=== PATIENT | male | born 1955 | race Caucasian/White ===

== ENCOUNTER 2017-01-01 16:30 | Observation (INO) | payer OTHER ==
[~2017-01-01] VITALS: Ht 182.9 cm; Wt 79.8 kg
--- NOTE | ~2017-01-01 | CATH ---
Cardiac Diagnostic + PCI Report Demographics Patient Name BISHOP LUQUE Gender Male Date of 1955 Age 61 year(s) Patient Number [id number] Date of Study 01/02/2017 Visit Number [id number] Room Number G6337 [place] [id number] Ht 182.88 cm Wt 78.93 kg Referring Michael Primary Physician Physician Yu JEREZ Performing Michael Secondary Physician Physician Yu JEREZ Diagnostic Michael Assisting Physician Physician Yu JEREZ Interventional Michael Physician Change Management Facilitator Physician Yu JEREZ Findings and Conclusions Diagnostic Findings and Conclusion Type 2 medium diffuse disease Diagnostic Recommendations PCI CX Interventional Findings and Conclusion Increase LVEDP PCI to LCFX lesion Proximal Interventional Recommendations DAPT 1 year Secondary precautious measures Procedure Description The patient was brought to the diagnostic cardiac catheterization-EP laboratory in the fasting, non-sedated state. Informed consent was obtained in the written and verbal form after the risks and benefits were explained. The patient had no further questions and agreed to proceed. The planned puncture-incision site(s) were shaved and prepped with ChloraPrep and draped in the usual sterile manner. Conscious sedation, supplemental oxygen, and pain control medications were delivered by a registered nurse under physician guidance. Surface ECG rhythm, blood pressure measurement, and pulse oximetry were monitored throughout the procedure. Arterial access. The access site was infiltrated with lidocaine. The vessel was entered with the Seldinger technique. A sheath was advanced into the vessel and used for catheter placement. Selective left coronary angiography. A catheter was advanced into the left coronary vessel ostium under Fluoroscopic guidance. Contrast was injected by hand. Images were obtained in multiple projections. Selective right coronary angiography. A catheter was advanced into the right coronary vessel ostium under fluoroscopic guidance. Contrast was injected by hand. Images were obtained in multiple projections. Left heart catheterization. A catheter was advanced across the aortic valve to the left ventricle under fluoroscopic guidance. Resting hemodynamics were obtained. Angioplasty and Stent Placement: A guiding catheter was used to intubate the vessel. A 0.14 wire was then used to cross the lesion. A balloon catheter was placed across the lesion and inflated. The balloon catheter was then removed. A Drug Eluting Stent was placed and inflated. Post placement angiograms were performed. Arterial artery hemostasis was achieved. The patient was transferred to a regular nursing floor via cart accompanied by a nurse. The patient left the laboratory in stable condition. Diagnostic Cath Status: Urgent Interventional Cath Status: Urgent Procedure Procedure Type Diagnostic procedure:Angiography:, Coronary Angios /[facility] PCI procedure:Drug Eluting Coronary Stent:, CFX Indications: Elevated Troponin. The procedure was explained in detail to the patient. Risks, complications and alternative treatments were reviewed. Written consent was obtained. Medications Reviewed with Patient prior to Procedure. Angiographic Findings Dominance: Right Cardiac Arteries and Lesion Findings LMCA: Lesion on LMCA: Proximal subsection.40% stenosis . LAD: stent patent Asim Fatima is a previous stent on Mid LAD Mid subsection. Lesion on Prox LAD: Proximal subsection.25% stenosis . LCx: Lesion on Prox CX: Proximal subsection.80% stenosis 16 mm length reduced to 0%. Pre procedure BELLA III flow was noted. Post Procedure BELLA III flow was present. The guidewire cross was successful.A good run off was present.The lesion was diagnosed as a low risk lesion.Lesion plaque is ruptured.Culprit lesion. Devices used - Luge Wire .014 x 182. Number of passes: 1. - Emerge Balloon 3.0 x 12. 1 inflation(s) to a max pressure of: 12 kristina. - Promus Premier 3.5 x 16 Stent. 1 inflation(s) to a max pressure of: 16 kristina. RCA: dominant Lesion on Mid RCA: Mid subsection.40% stenosis . Coronary Tree Procedure Data Procedure Date Date: 01/02/2017Start: 01:47 PMEnd: 02:54 PM Entry Locations - Retrograde Percutaneous access was performed through the Right Femoral artery (Primary location). A 7 Fr sheath was inserted. Hemostasis was successfully obtained using Perclose ProGlide (Diaz). Closure Comments: Perclose deployed by mariana . Procedure Medications Order and Administration + + + + + !Time !Medication !Dosage !Route ! + + + + + !01/02/2017 01:41 PM !Fentanyl !50 mcg !I.V. ! + + + + + !01/02/2017 01:47 PM !Versed !1 mg !I.V. ! + + + + + !01/02/2017 01:48 PM !Fentanyl !25 mcg !I.V. ! + + + + + !01/02/2017 01:49 PM !Versed !1 mg !I.V. ! + + + + + !01/02/2017 01:51 PM !Oxygen !2 l/min !NC ! + + + + + !01/02/2017 02:09 PM !Heparin (ACC_3) !6000 units !I.V. ! + + + + + 01/02/2017 02:21 PM !Baby Aspirin (ACC_4) !243 mg !P.O. ! + + + + + 01/02/2017 02:32 PM !Nitroglycerin !15 mcg/min !I.V. drip ! + + + + 01/02/2017 02:34 PM !Fentanyl !25 mcg !I.V. ! + + + + 01/02/2017 02:43 PM !Plavix (ACC_8) !300 mg !P.O. ! + + + + + !01/02/2017 02:36 PM !Heparin (ACC_3) ! !I.V. drip ! + + + + + !01/02/2017 02:37 PM !Integrilin (ACC_7) !14.6 mg !I.V. bolus ! + + + + + !01/02/2017 02:42 PM !Integrilin (ACC_7) !2 mcg/kg/min !I.V. drip ! + + + + + Devices Used - A6 Fr. BS JR 4 Diag. Catheterwas used for:Right coronary angiography. - A6 Fr. BS JL 4 Diag. Catheterwas used for:Left coronary angiography. - A6 Fr. XB 3.5 Guide Catheterwas used for:LAD Intervention. Contrast Material - Isovue [id number] ml Fluoroscopy Time: Diagnostic: 8:42 minutes. Total: 8:42 minutes. Fluoroscopy Dose: Diagnostic: 1913 mGy. Total: 1913 mGy. Estimated Blood Loss: 30 ml. Additional [facility] PCI Information PCI Indication:Other. Medical History Performed Procedures and Imaging Results - No [facility] stress or imaging studies were performed. Allergies - No known allergies. Risk Factors The patient risk factors include:prior PCI on 10/13/2015;peripheral arterial disease, hypertension, chronic lung disease, dyslipidemia, Current/Recent(w/in 1 year) tobacco use and prior IN . Admission Data Admission Date: 01/01/2017 Admission Time: 05:40 PM Admit Source: Emergency department Insurance Payors: None. Admission Medications + +------+------+---------+ + + + !Medication !Dosage!Times !Last !Last !Administered !Comments ! ! ! !Per !Delivery !Delivery ! ! ! ! ! !Day !Date !Time ! ! ! + +------+------+---------+ + + + !Aspirin (any)! ! ! ! !Yes ! ! + +------+------+---------+ + + + !Clopidogrel ! ! ! ! !Yes ! ! + +------+------+---------+ + + + !Beta Jose Armando ! ! ! ! !Yes ! ! !(any) ! ! ! ! ! ! ! + +------+------+---------+ + + + !LISA Inhibitor! ! ! ! !Yes ! ! !(any) ! ! ! ! ! ! ! + +------+------+---------+ + + + !Statin (any) ! ! ! ! !Yes ! ! + +------+------+---------+ + + + !Nitrates (iv ! ! ! ! !Yes ! ! !or buccal) ! ! ! ! ! ! ! + +------+------+---------+ + + + Clinical Evaluation Leading to Procedure - The patient's CAD presentation was assessed as: Non-STEMI. - The patient's anginal syndrome during the past two weeks was assessed as: Class IV according to the [place] Cardiovascular Society Classification System (CCS). Anti-anginal medications were prescribed during the past two weeks. The medication is: Beta Blockers. Hemodynamics Condition: Rest O2 Consumption: Estimated: 229.19Heart Rate: 61 bpm Pressures (mmHg) +-----+ + !Site !Pressure ! +-----+ + !LV !163/0 ,20 ! +-----+ + !LV !153/1 ,19 ! +-----+ + !AO !166/79 (114) ! +-----+ + Shunts Oxygen Values O2 Capacity 212.16 O2 Consumption 229.19 Discharge Data Discharge Date: 01/03/2017 Hospital Status: Inpatient Signatures dtt: Yu Rodriguez dtchristina: 01/02/17 1347 Physician Self Edit
--- NOTE | ~2017-01-01 | ECHO ---
Transthoracic Echocardiography Report (TTE) Demographics Patient Name ENE TIDWELL Date of Study 01/02/2017 Patient Number [id number] Visit Number [id number] Date of 1955 Room Number G6337 Gender Male Number Age 61 year(s) Referring Michael Nicholas Fireworks Assembly Supervisor Ivett aPvon, Physician RT,RVT,RDCS Physician Interpreting Michael Nicholas Director Corporate Compliance Physician Supervising Ordering Michael Nicholas MD/MLP Physician Nurse Stress Food Service Associate Conclusions Contractility Score Summary Normal Left Ventricular contractility was noted. Summary The estimated left ventricular ejection fraction is 60-65% with normal internal dimension and WM.Mild concentric left ventricular hypertrophy. Mild TR. There is mild pulmonary hypertension. The pulmonary pressure (RVSP) is 34 mmHg. Procedure Type of Study TTE procedure:2D Echocardiogram, M-Mode, Doppler , Color Doppler. Procedure Date Date: 01/02/2017 Start: 10:05 AM Study Location: Inpatient Portable Technical Quality: Adequate visualization Indications:Chest pain. Appropriate Use Criteria: 9 Patient Status: Routine HR: 73 bpm BP: 176/88 mmHg Allergies - No known allergies. M-Mode/2D Measurements LV Diastolic Dimension: 4.63 cm LV Systolic Dimension: 3.09 cm LV Septum Diastolic: 1.35 cm LV PW Diastolic: 1.24 cm AO Root Dimension: 3.5 cm Cardiac Output: 4.95 l/min AV Cusp Separation: 1.7 cm RV Diastolic Dimension: 3 cm LA volume: 46 ml MV EPSS: 70 cm LVOT: 2 cm LVOT VTI: 21.6 cm LV Stroke volume: 67.82 ml Doppler Measurements AV Peak Velocity: 1.16 m/s MV Peak E-Wave: 0.83 m/s AV Peak Gradient: 5.38 mmHg MV Peak A-Wave: 0.79 m/s AV Mean Gradient: 3 mmHg MV E/A Ratio: 1.06 LVOT Peak Velocity: 1.01 m/s MV P1/2t: 58 msec TR Gradient:20.98 mmHg PV Peak Velocity: 1.1 m/s Estimated RAP:10 mmHg PV Peak Gradient: 4.84 mmHg Estimated RVSP: 31 mmHg Estimated PASP: 30.98 mmHg E' Septal Velocity: 0.06 m/s A' Septal Velocity: 0.07 m/s MV E/E' Ratio: 13.6 Findings Left Ventricle Mild concentric left ventricular hypertrophy with normal internal dimension,EF and WM. Right Ventricle Normal right ventricle structure and function. Left Atrium Normal left atrial size. Right Atrium Normal right atrial size. Mitral Valve Normal mitral valve structure and function. Aortic Valve Normal aortic valve structure and function. Tricuspid Valve There is mild pulmonary hypertension. The pulmonary pressure (RVSP) is 34 mmHg. Pulmonic Valve Normal pulmonic valve structure and function. Pericardial Effusion No evidence of pericardial effusion. Miscellaneous Visualized portions of the aortic root and ascending aorta appear normal in size. Pleural Effusion No evidence of pleural effusion. Contractility Score LV regional wall motion:(0-Non visualized 1-Normal 2-Hypokinesis 3-Akinesis 4-Dyskinesis 5-Aneurysm) Signature dtt: Yu Rodriguez dtd: 01/02/17 1005 Physician Self Edit
--- NOTE | ~2017-01-01 | HP ---
PATIENT'S NAME: ENE TIDWELL [facility] AGE: 61 Y [address] ROOM: G6337 [place], [place] [address] LOCATION: GPCU ADMIT DATE: 01/01/2017 History & Physical DISCHARGE DATE: FAMILY PHYSICIAN: PHYSICIAN, UNKNOWN ATTENDING PHYSICIAN: Yu Rodriguez DATE OF SERVICE: 01/01/2017 HISTORY OF PRESENT ILLNESS: Mr. Tidwell is a 61-year-old male patient who has been having exertional chest pain off and on for the past month. Today morning, this started around 10 o'clock when he was working and did not quite go away, like they usually do. It got a lot better though, but he decided to go to the emergency room in [place] where an initial EKG showed atrial paced rhythm and his troponin was borderline elevated. His pain was still a little more than 3 or so on a scale of 1-10. Earlier in the day, it was 9 on a scale of 1-10. It apparently seemed to radiate to the left inframammary area and both shoulders, more so on the left side than on the right, associated with sweating, dizziness, and heart feeling. He was started on IV nitroglycerin and transferred here by ambulance. His pain is now down to 1. His systolic blood pressure when he was in [place] was in the 200s and it is now down to 190s. The patient had an acute anterior TN about a year ago and was treated with a stent at that time. Unfortunately, he continues to smoke. He had about a 75- 80% lesion in the circumflex and the right coronary artery at the time of his TN. He has been in functional class 2 with no paroxysmal nocturnal dyspnea or orthopnea. He had been lightheaded and dizzy in 2008 and underwent permanent pacemaker placement. He has occasional palpitations. He has no ankle swelling. The patient has history of hypertension, elevated cholesterol, and ongoing tobaccoism. He denies diabetes or family history of premature coronary artery disease. He has a history of TN in 2016. The patient denies rheumatic fever, heart murmur, congestive heart failure, or dilated or enlarged heart. He has a permanent pacemaker placement as above and has no definitive history of atrial fibrillation. MEDICATIONS: 1. Aspirin 81 mg a day. 2. Plavix 75 mg a day. 3. Acetaminophen. 4. Metoprolol 25 mg b.i.d. PATIENT'S NAME: ENE TIDWELL [facility] AGE: 61 Y [address] ROOM: G6337 [place], [place] [address] [facility] ADMIT DATE: 01/01/2017 History & Physical DISCHARGE DATE: FAMILY PHYSICIAN: PHYSICIAN, UNKNOWN ATTENDING PHYSICIAN: Yu Rodriguez 5. Enalapril 2.5 mg a day. 6. Atorvastatin 80 mg a day. 7. Nitroglycerin as needed. ALLERGIES: NO KNOWN ALLERGIES. PAST MEDICAL HISTORY: Healthy. SOCIAL HISTORY: The patient is . He denies abusing alcohol even though he drinks 1-2 ounces of whiskey almost on a daily basis. His appetite and weight are stable. Sleep is fair. FAMILY HISTORY: No premature coronary artery disease. REVIEW OF SYSTEMS: Twelve-point review of systemsreveals that he has, 1. Difficult to get rid of cold for the past 2 months and hay fever. 2. Corrective lenses. 3. Dysphagia for solids, going on for a number of years, which is nonprogressive, in fact may have gotten better lately. PHYSICAL EXAMINATION: VITAL SIGNS: His blood pressure is 190/80, heart rate is in the 60s and it is atrial paced, respirations are 18, afebrile, and oxygen saturation is 99% on room air. HEENT: Normal. NECK: Supple with no JVD, thyromegaly, lymphadenopathy, or carotid bruit. CARDIAC: PMI is not well located. First and second heart sounds are regular. There are no added sounds or murmurs. CHEST: Clear to auscultation. ABDOMEN: Soft and nontender. Bowel sounds are normally present. EXTREMITIES: No edema. CENTRAL NERVOUS SYSTEM: Intact. ASSESSMENT: A 61-year-old male patient with a known coronary artery disease, status post myocardial infarction about a year ago, presents with a recurrence of similar pains that has been again prolonged today. His initial troponin in [place] [facility] was mildly elevated. His EKG is negative for ST elevation. He was transferred by ground ambulance. He currently reports the pain to be 1 on a scale of 1-10. PATIENT'S NAME: ENE TIDWELL [facility] AGE: 61 Y [address] ROOM: [address] [address] LOCATION: [facility] ADMIT DATE: 01/01/2017 History & Physical DISCHARGE DATE: FAMILY PHYSICIAN: PHYSICIAN, UNKNOWN ATTENDING PHYSICIAN: Yu Rodriguez RECOMMENDATIONS: We will continue with his home medications and add on nitroglycerin intravenously as well as heparin intravenously. Get his blood pressure better controlled and rule him out for TN and then based on whether he had a non- STEMI or not, we will decide regarding catheterization or stress test. MD BUSTER DONOVAN/douglas /[id number] D: [id number] T: [id number] HISTORY & PHYSICAL
[~2017-01-01 16:30] MED LIST: ASPIRIN LO-DOSE81 MG PO; BRILINTA90 MG PO; LIPITOR80 MG PO; LOPRESSOR25 MG PO; NICODERM (HABIT14 MG TRANS; NITROSTAT0.4 MG SL; TOPROL XL200 MG PO; TYLENOL325 MG PO; VASOTEC5 MG PO
[2017-01-01] MEDS ORDERED: PLAVIX75 MG PO (18:11)
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
--- NOTE | 2017-01-02 04:32 | NUR ---
Significant Event: Patient A/Ox3. VSS on RA. Hypertensive, but SBP<180. Heparin running at 1000u/hr. Patient states he does not have any chest pain, but does have the same tightness in his chest that he has had for quite awhile. Up SBA to bathroom. Good UOP. Patient has been NPO since midnight for possible stress test this AM. Follow up: Stress test? Depending on morning troponin level.
--- NOTE | 2017-01-02 14:36 | NUR ---
Introduced self and role of care managememt to patient. He lives in [place] by himself. He states that he is able to do all his own ADL's. He states that he has family and friends that assist if needed. He plans on returning home on dicharge. He denies any needs at this time. Will continue to follow.
--- NOTE | 2017-01-02 17:17 | NUR ---
Significant Event: HRT CATH THIS AFTERNOON, BACK ABOUT 1500. STENTED THE CIRC. HEPARIN OFF, NTG ON KEEP SYS BP LESS THAN 160, INTEGRILLIN X6 HOURS, OFF 2100. CBC AT 1900, CALL PLT'S LESS THAN OR EQUAL TO 150. FINISH THIS BAG OF NS THEN LOCK...UNLESS USING FOR A CARRIER. PT DID STAND AT BEDSIDE TO USE URINAL, DRESSING WAS CDI WITH NO DRAINAGE AT ALL, NOW IS SATUATED. NO CHANGES IN GROIN SITE, NO LEAKING, NO HEMATOMA. SITE IS VERY TENDER AND WAS UPON RETURN FROM MANAGER TRANSFER. Follow up: TOLD PT NOT STAND UP AGAIN WITHOUT LETTING US KNOW OR CALLING FOR HELP.
[2017-01-02 19:01] LABS: BASOPHIL # 0.1 K/uL (0.0-0.2); BASOPHIL % 0.9 %; EOSINOPHIL # 0.2 K/uL (0.0-0.5); EOSINOPHIL % 2.8 %; HEMATOCRIT 39.5 % (37.0-53.0); HEMOGLOBIN 13.4 g/dL (11.0-16.0); IMMATURE GRANULOCYTE % 0.2 %; LYMPHOCYTE # 1.5 K/uL (0.8-4.0); LYMPHOCYTE % 25.3 %; MCH 32.5 pg (27.0-34.0); MCHC 33.9 gm/dL (32.0-36.5); MCV 95.9 fl (83.0-98.0); MONOCYTE # 0.4 K/uL (0.0-1.0); MONOCYTE % 7.3 %; MPV 9.7 fl (9.4-12.4); NEUTROPHIL # (ANC) 3.7 K/uL (1.4-9.0); NEUTROPHIL % 63.5 %; NRBC % 0 /100WBC (0-0.00); PLATELET COUNT 124 K/uL (150-450); RBC 4.12 M/uL (3.50-5.50); RDW-CV 12.6 % (11.9-14.6); WBC 5.8 K/uL (4.0-11.0)
[2017-01-03 04:12] LABS: BASOPHIL % 0.5 %; EOSINOPHIL # 0.2 K/uL (0.0-0.5); EOSINOPHIL % 3.6 %; HEMATOCRIT 40.7 % (37.0-53.0); HEMOGLOBIN 13.7 g/dL (11.0-16.0); IMMATURE GRANULOCYTE % 0.4 %; LYMPHOCYTE # 0.9 K/uL (0.8-4.0); LYMPHOCYTE % 15.4 %; MCH 32.7 pg (27.0-34.0); MCHC 33.7 gm/dL (32.0-36.5); MCV 97.1 fl (83.0-98.0); MONOCYTE # 0.5 K/uL (0.0-1.0); MONOCYTE % 9.1 %; MPV 9.5 fl (9.4-12.4); NEUTROPHIL # (ANC) 3.9 K/uL (1.4-9.0); NRBC % 0 /100WBC (0-0.00); PLATELET COUNT 110 K/uL (150-450); RBC 4.19 M/uL (3.50-5.50); RDW-CV 12.8 % (11.9-14.6); WBC 5.5 K/uL (4.0-11.0)
[2017-01-03 04:32] LABS: ALBUMIN 3.3 gm/dL (3.5-5.0); ALK PHOS 84 IU/L (33-138); ALT 34 IU/L (12-78); ANION GAP 10.2 (10.0-19.0); AST 30 IU/L (10-40); BLOOD UREA NITROGEN 13 mg/dL (6-24); CALCIUM 8.3 mg/dL (8.5-10.5); CHLORIDE 111 mMol/L (96-110); CO2 23 mMol/L (22-32); CREATININE 0.8 mg/dL (0.6-1.3); ESTIMATED GFR (MDRD EQUATION) > 60; POTASSIUM 4.2 mMol/L (3.7-5.1); SODIUM 140 mMol/L (135-145); TOTAL BILIRUBIN 0.8 mg/dL (0.0-1.5); TOTAL PROTEIN 6.2 g/dL (6.0-8.4)
--- NOTE | 2017-01-03 04:48 | NUR ---
Significant events: Pt A/Ox3. VSS, SBP 120-140's. On RA. Up SBA. R) groin soft, no hematoma, dressing CDI after being changed x2 and pressure applied for 5 minutes. Voids per urinal. BM this shift. Slept most of shift. Possible home today.
[2017-01-03] MEDS ORDERED: HYDRODIURIL25 MG PO (10:37)
[2017-01-03] MEDS ORDERED: NICODERM / HABIT7 MG (10:44)
--- NOTE | 2017-01-03 12:55 | NUR ---
PT DISMISSED TO HOME WITH CHAYITO TO DRIVE. AT TIME OF DC PT IS A/O PINK WARM AND DRY, STEADY ON FEET WHEN UP AND AROUND IN ROOM, SHOWER AND HALLWAYS. LUNGS ARE CLEAR AND DIMINISHED UPPER AND DIMINISHED LOWER, HE DOES HAVE A HARSH, PRODUCTIVE COUGH. PT ADMITS TO SMOKING A PACK A DAY FOR THE LAST 40 YEARS. ABDOMEN IS SOFT AND NONTENDER WITH PRESENT BOWEL SOUNDS, PULSES ARE STRONG HE HAS NO EDEMA. RT GROIN IS SOFT AND VERY SLIGHTLY TENDER, NO OOZING, NO DRAINAGE, NO HEMATOMA, NO BRIUSING. DISSMISSAL INSTRUCTIONS, MEDICATIONS, MEDICATION INSTRUCTIONS, PRESCRIPTIONS, GROIN CARE, FOLLOW UP CARE AND APPOINTMENTS ALL WENT OVER WITH PT, VERBALIZES UNDERSTANDING. W/C TO FRONT WEST TOWER LOBBY DOORS FOR DC TO HOME.
== END 2017-01-03 11:30 | disposition disaster alternative care site (69) ==
LOC: GPCU 17:40
PROVIDERS: ADMIT Internal Medicine Interventional Cardiology
PROC: 4A023N7 Measurement of Cardiac Sampling and Pressure, Left Heart, Percutaneous Approach (ICD-10-PCS; principal; 2017-01-02)
DX: I21.4 Non-ST elevation (NSTEMI) myocardial infarction (principal); I25.10 Atherosclerotic heart disease of native coronary artery without angina pectoris; I25.2 Old myocardial infarction; I10 Essential (primary) hypertension; E78.00 Pure hypercholesterolemia, unspecified; Z79.899 Other long term (current) drug therapy; I27.2 Other secondary pulmonary hypertension; Z95.0 Presence of cardiac pacemaker
CPT/HCPCS: C1725; C1760; C1769; C1874; C1887; C9600; G0378; J0583; J1327; J1644; J2250; J3010; J7030; J7060

== ENCOUNTER → 2017-01-21 | Outpatient (CLI) | payer OTHER ==
[~2017-01-21] MED LIST changes: +HYDRODIURIL25 MG PO; +NICODERM / HABIT7 MG; +PLAVIX75 MG PO
--- NOTE | ~2017-01-21 | ESTC ---
Cardiac Perfusion Imaging Demographics Patient Name BISHOP ENE Weinstein Gender Male Patient Number [id number] Race Visit Number [id number] [place] [id number] Room Number Accession Number [id number] Height 72 inches Date of 1955 Weight 165 pounds Interpreting Jung Sheppard MD Date of study 01/21/2017 Physician Supervising /ANGIE Christina NM Technologist MANAGER OF [employer]IED HE[employer] SERVICES Ordering Physician Stress instrument and control technician Stress ECG Reading Caroline Christina Nurse Pao Loaiza RN Physician MANAGER OF [employer]IED HE[employer] SERVICES Procedure Procedure Type: Nuclear Stress Test:Pharmacological, Lexiscan, Cardiolite Stress Test Procedure Start time: 01/21/2017 08:35 Indications: Chest pain. Risk Factors The patient risk factors include:prior PCI on 08/04/2015;Current/Recent(w/in 1 year) tobacco use, treated hypercholesterolemia, treated hypertension and dyslipidemia. Conclusions Summary Cardiolite SPECT images demonstrate an anteroapical fixed defect. There is evidence of inducible anteroseptal and inferior wall reversible defect of moderate to severe severity. Abnormal TID ratio of 1.19 Gated images demonstrate demonstrate mild hypokinesis of the above mentioned areas of fixed defect. LVEF is 45% Stress Protocols Resting ECG 1:1 atrial paced rhythm. Intrinsic rhythm was sinus rhythm. Resting HR:60 bpm Resting BP:187/84 mmHg Pre-stress physical exam: Pharmacologic stress testing was performed due to patient has bad knees . Patient assessed by Alan Velazquez APRN prior to testing. Stress Protocol:Pharmacologic Peak HR:75 bpm HR response: Appropriate Predicted HR: 160 bpm BP response: Appropriate % of predicted HR: 47 Reason for termination:Infusion complete ECG Findings No ECG changes suggestive of ischemia. Arrhythmias No rhythm abnormality. Stress Interpretation ECG portion of stress test is negative for ischemia by diagnostic criteria. Stress supervision and interpretation provided by Mary Alice Velazquez APRN . Imaging Results Summed scores - Summed stress score: 11 - Summed rest score: 11 - Summed difference score: 0 Stress ejection Ejection fraction:44 % EDV :133 ml ESV :74 ml Stroke volume :59 ml LV mass :158 gr Imaging Protocols Rest Stress Isotope:Tc99m Sestamibi IV Isotope: Tc99m Sestamibi IV Isotope dose:12 mCi Isotope dose:37.4 mCi Date:01/21/2017 07:30 Date:01/21/2017 08:56 Technique: SPECT Technique: Gated Supine SPECT Supine Scan Time:45-60 minutes post Scan Time:45-60 minutes post injection injection Procedure Medications - Regadenoson (Lexiscan) 0.4 mg IV over 10-15 sec. I.V. 0.4 mg. Medical History Admission Data Admission date: 01/21/2017 Admission Time: 06:56 Hospital Status: Outpatient. Signatures dtt: Silver Feng (cardio) dtd: 01/21/17 0835 Physician Self Edit
== END | disposition disaster alternative care site (69) ==
LOC: GLAB 06:56 → GRAD 07:15
DX: R07.9 Chest pain, unspecified (principal); Z72.0 Tobacco use; E78.00 Pure hypercholesterolemia, unspecified; I10 Essential (primary) hypertension; E78.5 Hyperlipidemia, unspecified; Z98.61 Coronary angioplasty status
CPT/HCPCS: A9500; J2785

== ENCOUNTER 2017-01-28 06:42 | Outpatient (CLI) | payer OTHER ==
[~2017-01-28] VITALS: Ht 182.9 cm; Wt 75.0 kg
--- NOTE | ~2017-01-28 | CATH ---
Cardiac Diagnostic + PCI Report Demographics Patient Name BISHOP ENE Weinstein Gender Male Date of 1955 Age 61 year(s) Patient Number [id number] Date of Study 01/28/2017 Visit Number [id number] Room Number G6[address] [place] [id number] Ht 182.88 cm Wt 79 kg Referring [facility] Primary Physician Physician [facility] Performing Jung Sheppard MD Secondary Physician Physician Diagnostic Jung Sheppard MD Assisting Physician Physician Interventional Jung Sheppard MD Physician Stereotype Finisher Physician Findings and Conclusions Diagnostic Findings and Conclusion Two vessel CAD. Lesion proximal to LAD stent. Diagnostic Recommendations iFr of LAD Interventional Findings and Conclusion iRF of LAD = 0.87. Successful CAMRYN to LAD. 0.014 Prowater 3 x 12 Emerge 3.25 x 8 Alpine to 3.5 Interventional Recommendations DAPT x 1 year. Routine post angioseal care. Procedure Description The patient was brought to the diagnostic cardiac catheterization-EP laboratory in the fasting, non-sedated state. Informed consent was obtained in the written and verbal form after the risks and benefits were explained. The patient had no further questions and agreed to proceed. The planned puncture-incision site(s) were shaved and prepped with ChloraPrep and draped in the usual sterile manner. Conscious sedation and pain control medications were delivered by a registered nurse under physician guidance. Surface ECG rhythm, blood pressure measurement, and pulse oximetry were monitored throughout the procedure. Arterial access. The access site was infiltrated with lidocaine. The vessel was entered with the Seldinger technique. A sheath was advanced into the vessel and used for catheter placement. Selective left coronary angiography. A catheter was advanced into the left coronary vessel ostium under Fluoroscopic guidance. Contrast was injected by hand. Images were obtained in multiple projections. Selective right coronary angiography. A catheter was advanced into the right coronary vessel ostium under fluoroscopic guidance. Contrast was injected by hand. Images were obtained in multiple projections. Left heart catheterization. A catheter was advanced across the aortic valve to the left ventricle under fluoroscopic guidance. Resting hemodynamics were obtained. iFR measurement was performed. The vessel was entered with a guiding catheter. The iFR wire was normalized and then advanced across the lesion. Measurements were taken. Angioplasty and Stent Placement: A guiding catheter was used to intubate the vessel. A 0.14 wire was then used to cross the lesion. A balloon catheter was placed across the lesion and inflated. The balloon catheter was then removed. A Drug Eluting Stent was placed and inflated. Post placement angiograms were performed. Arterial artery hemostasis was achieved. The patient was transferred to a regular nursing floor via cart accompanied by a nurse. The patient left the laboratory in stable condition. Diagnostic Cath Status: Elective Interventional Cath Status: Urgent Procedure Procedure Type Diagnostic procedure:Angiography:, Coronary Angios /[facility] PCI procedure:Drug Eluting Coronary Stent:, LAD, Additional Imaging:, FFR/iFR:, Initial Vessel Indications: Abnormal Stress Test. The procedure was explained in detail to the patient. Risks, complications and alternative treatments were reviewed. Written consent was obtained. Medications Reviewed with Patient prior to Procedure. Angiographic Findings Dominance: Mixed Cardiac Arteries and Lesion Findings LMCA: Normal (0% Stenosis).Large normal. LAD: Mild plaque throughout proximal portion. Mid patent stent. Immediately proximal to stent 85% stenosis. Diag 1 small.There is a previous stent on Mid LAD Mid subsection showing wide patency. Lesion on Mid LAD: Proximal subsection.85% stenosis 8 mm length reduced to 0%. Pre procedure BELLA III flow was noted. Post Procedure BELLA III flow was present. The guidewire cross was successful.The lesion was diagnosed as a low risk lesion.Culprit lesion. FFR + + + + !FFR !Stage/Medication !Dosage ! + + + + !0.87 ! ! ! + + + + Devices used - Verrata Pressure Wire. Number of passes: 1. - Prowater Wire .014 x 180. Number of passes: 1. - Emerge Balloon 3.0 x 12. 1 inflation(s) to a max pressure of: 12 kristina. - Alpine Stent 3.25 x 8. 3 inflation(s) to a max pressure of: 13 kristina. LCx: Large. Patent stent. OM 1 small, ok.There is a previous stent on Prox CX Proximal subsection showing wide patency. RCA: Medium, co-dominant. Mid plaque. PL medium, ok. PDA medium, ok. Coronary Tree Procedure Data Procedure Date Date: 01/28/2017Start: 08:19 AMEnd: 09:22 AM Entry Locations - Retrograde Percutaneous access was performed through the Right Femoral artery (Primary location). A 6 Fr sheath was inserted. Hemostasis was successfully obtained using Angio-Seal STS PLUS ([place]). Closure Comments: Deployed by [employer]. Procedure Medications Order and Administration + + + + + !Time !Medication !Dosage !Route ! + + + + + !01/28/2017 08:17 !Versed !1 mg !I.V. ! !AM ! ! ! ! + + + + + !01/28/2017 08:17 !Fentanyl !50 mcg !I.V. ! !AM ! ! ! ! + + + + + !01/28/2017 08:36 !Angiomax (Bivalirudin) !60 mg !I.V. bolus ! !AM !(ACC_5) ! ! ! + + + + + !01/28/2017 08:37 !Angiomax (Bivalirudin) !1.75 mg/kg/hr!I.V. drip ! !AM !(ACC_5) ! ! ! + + + + + !01/28/2017 08:54 !Nipride !50 mcg ! ! !AM ! ! ! ! + + + + + !01/28/2017 09:00 !Nipride !50 mcg ! ! !AM ! ! ! ! + + + + + !01/28/2017 09:04 !Nipride !50 mcg ! ! !AM ! ! ! ! + + + + + !01/28/2017 09:06 !Plavix (ACC_8) !300 mg ! ! !AM ! ! ! ! + + + + + !01/28/2017 09:08 !Angiomax (Bivalirudin) ! !I.V. drip ! !AM !(ACC_5) ! ! ! + + + + + Devices Used - A6 Fr. BS JL 4 Diag. Catheterwas used for:Left coronary angiography. - A6 Fr. BS JR 4 Diag. Catheterwas used for:Right coronary angiography. - A6 Fr. BS Angled Pigtail Diag. Catheterwas used for:LV Pressures. - A6 Fr. XB 3.5 Guide Catheterwas used for:LAD Intervention. Contrast Material - Isovue [id number] ml Fluoroscopy Time: Diagnostic: 15:00 minutes. Total: 15:00 minutes. Fluoroscopy Dose: Diagnostic: 1764 mGy. Total: 1764 mGy. Estimated Blood Loss: 5 ml. Medical History Performed Procedures and Imaging Results - Stress testing with SPECT MPIwas performed. Results were: Positive. Risk/Extent of ischemia was: Intermediate risk. Allergies - Chocolate. - Other:(Pet dander). Risk Factors The patient risk factors include:prior PCI on 01/05/2017;hypercholesterolemia, hypertension, chronic lung disease, dyslipidemia, Current/Recent(w/in 1 year) tobacco use and prior AL . Admission Data Admission Date: 01/28/2017 Admission Time: 06:42 AM Admit Source: Other Admission Medications + +------+------+ + + + + !Medication !Dosage!Times !Last !Last !Administered !Comments ! ! ! !Per !Delivery !Delivery ! ! ! ! ! !Day !Date !Time ! ! ! + +------+------+ + + + + !Aspirin ! ! ! ! ! ! ! !(any) ! ! ! ! ! ! ! + +------+------+ + + + + !Statin (any)! ! ! ! ! ! ! + +------+------+ + + + + !LISA ! ! ! ! ! ! ! !Inhibitor ! ! ! ! ! ! ! !(any) ! ! ! ! ! ! ! + +------+------+ + + + + !Beta Jose Armando! ! ! ! ! ! ! !(any) ! ! ! ! ! ! ! + +------+------+ + + + + !Clopidogrel ! ! ! ! ! ! ! + +------+------+ + + + + Clinical Evaluation Leading to Procedure Diagnosed on 01/28/2017 12:00 AM. - The patient's CAD presentation was assessed as: Stable angina. - The patient's anginal syndrome during the past two weeks was assessed as: Class III according to the [employer] Cardiovascular Society Classification System (CCS). Anti-anginal medications were prescribed during the past two weeks. The medication is: Beta Blockers. Hemodynamics Condition: Rest O2 Consumption: Estimated: 231.73Heart Rate: 64 bpm Pressures (mmHg) +-----+ + !Site !Pressure ! +-----+ + !AO !175/90 (114) ! +-----+ + !AO !152/72 (102) ! +-----+ + !LV !160/4 ,19 ! +-----+ + !LV !157/3 ,18 ! +-----+ + !AO !149/68 (100) ! +-----+ + !LV !135/1 ,8 ! +-----+ + Valve Gradients and Areas + +---------+---------+---------+ +---------+ + !Valve !Peak !Mean !Area !Index !Flow !Source ! + +---------+---------+---------+ +---------+ + !Aortic !0 !0 ! ! ! ! ! + +---------+---------+---------+ +---------+ + !Aortic !0 !0 ! ! ! ! ! + +---------+---------+---------+ +---------+ + Shunts Oxygen Values O2 Capacity 197.2 O2 Consumption 231.73 Discharge Data Discharge Date: 01/29/2017 Hospital Status: Outpatient Signatures dtt: Silver Feng (cardio) dtd: 01/28/17 0819 Physician Self Edit
[2017-01-29 05:20] LABS: BASOPHIL # 0.1 K/uL (0.0-0.2); BASOPHIL % 0.6 %; EOSINOPHIL # 0.4 K/uL (0.0-0.5); EOSINOPHIL % 5.4 %; HEMATOCRIT 39.2 % (37.0-53.0); HEMOGLOBIN 13.7 g/dL (11.0-16.0); IMMATURE GRANULOCYTE % 0.5 %; LYMPHOCYTE # 1.4 K/uL (0.8-4.0); LYMPHOCYTE % 18.4 %; MCH 32.9 pg (27.0-34.0); MCHC 34.9 gm/dL (32.0-36.5); MCV 94.2 fl (83.0-98.0); MONOCYTE # 0.7 K/uL (0.0-1.0); MONOCYTE % 8.9 %; MPV 9.6 fl (9.4-12.4); NEUTROPHIL # (ANC) 5.1 K/uL (1.4-9.0); NEUTROPHIL % 66.2 %; NRBC % 0 /100WBC (0-0.00); PLATELET COUNT 132 K/uL (150-450); RBC 4.16 M/uL (3.50-5.50); RDW-CV 12.1 % (11.9-14.6); WBC 7.7 K/uL (4.0-11.0)
[2017-01-29 05:41] LABS: ALBUMIN 3.4 gm/dL (3.5-5.0); ALK PHOS 82 IU/L (33-138); ALT 36 IU/L (12-78); ANION GAP 9.3 (10.0-19.0); AST 24 IU/L (10-40); BLOOD UREA NITROGEN 17 mg/dL (6-24); CALCIUM 8.7 mg/dL (8.5-10.5); CHLORIDE 106 mMol/L (96-110); CO2 27 mMol/L (22-32); CREATININE 0.9 mg/dL (0.6-1.3); ESTIMATED GFR (MDRD EQUATION) > 60; POTASSIUM 4.3 mMol/L (3.7-5.1); SODIUM 138 mMol/L (135-145); TOTAL PROTEIN 6.6 g/dL (6.0-8.4)
[2017-01-29 05:45] LABS: TOTAL BILIRUBIN 0.6 mg/dL (0.0-1.5)
== END 2017-01-29 10:12 | disposition disaster alternative care site (69) ==
LOC: GPCU 06:42 → GCAT 06:42 → GPCU 09:04 → GCAT 15:00
PROVIDERS: Internal Medicine Interventional Cardiology
PROC: 4A023N7 Measurement of Cardiac Sampling and Pressure, Left Heart, Percutaneous Approach (ICD-10-PCS; principal; 2017-01-28)
PROC: B216YZZ Fluoroscopy of Right and Left Heart using Other Contrast (ICD-10-PCS; 2017-01-28)
DX: I25.10 Atherosclerotic heart disease of native coronary artery without angina pectoris (principal); E78.5 Hyperlipidemia, unspecified; R94.39 Abnormal result of other cardiovascular function study; R94.31 Abnormal electrocardiogram [ECG] [EKG]
CPT/HCPCS: C1725; C1760; C1769; C1874; C1887; C9600; J0583; J1644; J2001; J2250; J3010; J7030; J7060